=== PATIENT | female | born 1945 | race Two or more races ===

== ENCOUNTER 2018-06-10 13:44 | Emergency (ER) | payer OTHER ==
[~2018-06-10] VITALS: Ht 167.6 cm; Wt 106.6 kg
[2018-06-10] MEDS ORDERED: COZAAR50 MG (14:17)
[2018-06-10] MEDS ORDERED: PRIMIDONE50 MG (14:17)
[2018-06-10] MEDS ORDERED: BUPRENORPHINE HC2 MG (14:19)
[2018-06-10] MEDS ORDERED: PAXIL40 MG (14:20)
== END 2018-06-10 20:00 | disposition home or self-care (01) ==
LOC: ER 13:44
DX: R19.7 Diarrhea, unspecified (principal)

== ENCOUNTER → 2019-02-02 | Emergency (ER) | payer OTHER ==
[~2019-02-02] VITALS: Ht 167.6 cm; Wt 102.1 kg
[~2019-02-02] MED LIST: BUPRENORPHINE HC2 MG; COZAAR50 MG; GLIMEPIRIDE2 MG; PAXIL40 MG; PRIMIDONE50 MG
== END | disposition home or self-care (01) ==
LOC: ER 10:48
DX: S90.32XA Contusion of left foot, initial encounter (principal); S90.31XA Contusion of right foot, initial encounter; W23.0XXA Caught, crushed, jammed, or pinched between moving objects, initial encounter; Y93.89 Activity, other specified; Y92.89 Other specified places as the place of occurrence of the external cause; Y99.8 Other external cause status

== ENCOUNTER 2022-08-03 10:18 | Outpatient (CLI) | payer OTHER | END 2022-08-03 12:30 | disposition home or self-care (01) | LOC: RAD 10:18 | DX: J44.9 Chronic obstructive pulmonary disease, unspecified (principal); M75.50 Bursitis of unspecified shoulder; M17.0 Bilateral primary osteoarthritis of knee ==

== ENCOUNTER 2022-08-03 10:44 | Outpatient (CLI) | payer OTHER | END 2022-08-03 10:54 | disposition home or self-care (01) | LOC: LAB 10:44 | PROVIDERS: ATTEND Radiology Diagnostic Radiology | DX: D32.9 Benign neoplasm of meninges, unspecified (principal) ==